=== PATIENT | male | born 1975 | race Caucasian/White ===

== ENCOUNTER 2019-04-04 06:29 | Emergency (ER) | payer SELFPAY ==
[~2019-04-04] VITALS: Ht 175.3 cm; Wt 88.5 kg
--- NOTE | 2019-04-04 06:31 | NUR ---
PT BIBA BLS TO ER BED 3
[2019-04-04 06:39] VITALS: BP 161/108
--- NOTE | 2019-04-04 06:53 | NUR ---
43 Y/O M PRESENTS TO ED WITH C/O HEADACHE AND HTN X6 HOURS. AAOX4. PT STATED MANE AND HTN STARTED AT MIDNIGHT. PER EMS AT HOME BP 203/138 AND HR 110. NO PAST MEDICAL HX. CURRENT BP 161/108, HR 75. WAS AT HOME WHEN MANE STARTED. 8/10 PRESSURE PAIN. 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 EYES PERRL. NO ALOC. PT DENIES N/V/D. WILL CONTINUE TO MONITOR. HX: DENIES
--- NOTE | 2019-04-04 07:12 | NUR ---
BEDSIDE REPORT GIVEN TO DESIREE UMAÑA. TRANSFER OF CARE AT THIS TIME.
--- NOTE | 2019-04-04 07:17 | NUR ---
RECEIVED REPORT FROM PM SHIFT RN. PT AWAKE, ALERT. NO SOB. PT STATED HIS HEADACHE RELIEVED. BEDSIDE MONITOR SHOWS BP 134/84.
[2019-04-04] MEDS ORDERED: ACETAMINOPHEN 325 MG TAB PO ONE (07:25)
[2019-04-04] MEDS ORDERED: HYDROCHLOROTHIAZIDE 25 MG TAB PO ONE (07:25)
[2019-04-04 08:09] LABS: BASOPHILS % (AUTO) 0.4 % (0.0-2.0); EOSINOPHILS # (AUTO) 0.2 K/uL (0-0.4); EOSINOPHILS % (AUTO) 3.3 % (0.0-4.0); HEMATOCRIT 47.9 % (36-52); HEMOGLOBIN 16.2 g/dL (12.0-18.0); LYMPHOCYTES # (AUTO) 1.1 K/uL (2.0-11.5); LYMPHOCYTES % (AUTO) 16.2 % (20.5-51.1); MEAN CORPUSCULAR HEMOGLOBIN 31 pg (27-31); MEAN CORPUSCULAR HGB CONC 34 g/dL (33-37); MEAN CORPUSCULAR VOLUME 91.1 fL (80-94); MONOCYTES # (AUTO) 0.7 K/uL (0.8-1.0); NEUTROPHILS # (AUTO) 4.6 K/uL (1.8-7.7); NEUTROPHILS % (AUTO) 70.1 % (42.2-75.2); PLATELET COUNT (AUTO) 231 K/uL (140-450); RED BLOOD CELL COUNT(AUTO) 5.26 MIL/uL (4.20-6.10); WHITE BLOOD COUNT (AUTO) 6.6 K/uL (4.8-10.8)
[2019-04-04 08:18] LABS: ANION GAP 12.8 (8-16); CARBON DIOXIDE 26.3 mmol/L (21-32); POTASSIUM 4.1 mmol/L (3.5-5.1)
[2019-04-04 08:24] LABS: ALBUMIN 3.8 g/dL (3.4-5.0)
[2019-04-04 09:04] VITALS: BP 139/98
--- NOTE | 2019-04-04 09:05 | NUR ---
Patient discharged with v/s stable. Written and verbal after care instructions given and explained. Patient alert, oriented and verbalized understanding of instructions. Ambulatory with steady gait. All questions addressed prior to discharge. ID band removed. Patient advised to follow up with PMD. Rx of HYDROCHLOROTHIAZIDE AND AMBIEN given. Patient educated on indication of medication including possible reaction and side effects. Opportunity to ask questions provided and answered. EDUCATED PT REGARDING DIET AND EXERCISE.
== END 2019-04-04 09:00 | disposition home or self-care (01) ==
LOC: MED 06:29
DX: I10 Essential (primary) hypertension (principal); G47.00 Insomnia, unspecified
CPT/HCPCS: 36415; 71045; 80053; 83690; 84484; 85025; 93005; 99284; Q0092